=== PATIENT | female | born 1965 | race Asian ===

== ENCOUNTER 2024-10-19 16:47 | Emergency (ER) | payer OTHER, SELFPAY ==
[2024-10-19 16:55] VITALS: BP 140/71; PULSE 73; RESP 18; TEMP 36.4; O2SAT 100; BMI 19.5
--- NOTE | 2024-10-19 17:48 | ED_ITS ---
HPI - Back Pain/Injury <Brittnee Rosales PA-C - Last Filed: 10/19/24 18:50> General Chief Complaint: Back Pain/Injury Stated Complaint: lower abd and back px Time Seen by Provider: 10/19/24 17:22 History of Present Illness HPI Narrative: 59-year-old female presents [facility] with her for 2 separate complaints the 1st being low back pain radiating to her right buttock and hip that has been ongoing for the last 6 months or so, she reports no known injury. 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 She reports no numbness or tingling or weakness of her lower extremities, she reports no history of any kidney stones. Her 2nd complaint which really is the 1 that brought her in [facility] was some right-sided lower abdominal pain. Initially at triage they thought it was inguinal but she is pointing to her abdomen. She reports it came on suddenly while she was sitting at work at her desk. She describes it as achy and sometimes itching. She reports no radiation through to the back, no nausea, vomiting, fever, chills, flank pain, body aches, recent illness. She reports it does improve when she passes gas, she reports normal bowel movements though occasionally constipated but otherwise regular. Her last bowel movement was this morning which she described as dry and hard at 1st but then soft following she also described it as somewhat copious. She had no pain during defecation. She reports urination is normal. She has had no disruption during sleep. She has tried no treatment such as any medication, ice, heat, she is eating normally. Her only surgical history is hysterectomy. She resides in [place] and had her last physical 1 year ago. She denies any other medical issues. All other systems are reviewed and are negative. Related Data Allergies Allergy/AdvReac Type Severity Reaction Status Date / Time No Known Drug Allergies Allergy Verified 10/19/24 16:55 Review of Systems <Brittnee Rosales PA-C - Last Filed: 10/19/24 18:50> Review of Systems Narrative: All other systems reviewed and are negative. Patient History <Brittnee Rosales PA-C - Last Filed: 10/19/24 18:50> Social History Smoking Status: Unknown if ever smoked Smoking Status: Unknown if ever smoked Exam <Brittnee Rosales PA-C - Last Filed: 10/19/24 18:50> Initial Vital Signs Initial Vital Signs: Vital Signs Temperature 97.6 F 10/19/24 16:55 Pulse Rate 73 10/19/24 16:55 Respiratory Rate 18 10/19/24 16:55 Blood Pressure 140/71 10/19/24 16:55 Pulse Oximetry 100 10/19/24 16:55 Oxygen Delivery Method Room Air 10/19/24 16:55 Vital signs reviewed and are normal. Const Other: Smiling, seated, no distress. Alert and oriented x4. Irritable appearing. Able to rise from a seated position to standing without pain or difficulty. [facility] Head: normal to inspection, normocephalic and atraumatic Nose: external nose normal Mouth: oral mucosae normal, lip normal, tongue normal and oropharynx normal Neck Lymphatic: No lymphadenopathy Other: Full active range of motion to the neck. No pain elicited. Chest Chest: normal inspection of the chest Resp Effort & Inspection: normal respiratory effort and able to speak in complete sentences Auscultation: clear to auscultation bilaterally, no rales, no rhonchi and no wheezes Cardio Rate: regular rate Rhythm: regular rhythm GI Inspection: normal to inspection, no abdominal wall ecchymosis, non-distended, no incisions, no obesity, no scars, no striae and no visible herniation Palpation: soft, no hepatosplenomegaly and No guarding Percussion: normal to percussion Auscultation: normal bowel sounds Other: No CVA tenderness. No inguinal swelling or tenderness. No inguinal lymph nodes. Back/Spine/Pelvis Back: normal to inspection, No back tenderness, No CVA tenderness, No ecchymosis and No erythema Cervical Spine: normal cervical lordosis and cervical ROM normal Thoracic/Lumbar Spine: thoracic and lumbar spine normal to inspection Sacroiliac Joints: nontender Sacrum: no tenderness Coccyx: no tenderness Skin General: no rashes or lesions noted Neuro DTR's: Rt Patellar: 2+, Lt Patellar: 2+, Rt Ankle: 1+ and Lt Ankle: 1+ Extrem Other: Normal gait, full hip ROM, no pain elicited with internal or external rotation on the right hip, full extension and flexion, abduction and adduction do not cause pain. ITB band are nontender. No issues identified with the gluteus, piriformis is nontender, sciatic notch is nontender. No focal neurologic deficits. <DO Sandra Enciso Last Filed: 10/20/24 02:59> Initial Vital Signs Initial Vital Signs: Vital Signs Temperature 97.6 F 10/19/24 16:55 Pulse Rate 73 10/19/24 16:55 Respiratory Rate 18 10/19/24 16:55 Blood Pressure 140/71 10/19/24 16:55 Pulse Oximetry 100 10/19/24 16:55 Oxygen Delivery Method Room Air 10/19/24 16:55 Course <Brittnee Rosales PA-C - Last Filed: 10/19/24 18:50> Course Course Narrative: Her CT scan was unremarkable for any acute abdominal process, there was some fecal material in the small bowel suggesting slower transit perhaps or bacterial overgrowth, she is afebrile with no nausea or vomiting and no changes in her bowel pattern or stool. We discussed a trial of Toradol intravenous as she has a saline lock but she declined, she declined any oral medication such as acetaminophen or an oral NSAID. We discussed treatment options at length and of course red flag warning signs in detail. Orders Ordered: ED Orders 10/19/24 18:00 CBC Auto Diff [Complete Blood Count AUTO DIFF] Stat CMP [Comprehensive Metabolic Panel] Stat Vital Signs Vital signs: Vital Signs - 8 hr 10/19/24 16:55 Temperature 97.6 F Pulse Rate 73 Respiratory Rate 18 Blood Pressure 140/71 Pulse Oximetry 100 Oxygen Delivery Method Room Air <Stephanie Almaguer DO - Last Filed: 10/20/24 02:59> Orders Ordered: ED Orders 10/19/24 18:00 CBC Auto Diff [Complete Blood Count AUTO DIFF] Stat CMP [Comprehensive Metabolic Panel] Stat Vital Signs Vital signs: Vital Signs - 8 hr 10/19/24 16:55 Temperature 97.6 F Pulse Rate 73 Respiratory Rate 18 Blood Pressure 140/71 Pulse Oximetry 100 Oxygen Delivery Method Room Air MDM - Back Pain/Injury <LAURENT Ferrell Last Filed: 10/19/24 18:50> Lab Data Lab results narrative: Urinalysis is normal. CBC, CMP 10/19/24 18:00 10/19/24 18:00 Labs: Lab Results 10/19/24 Range/Units 18:00 WBC 5.5 (4.5-11.0) X10^3/uL RBC 4.10 (4.0-5.2) X10^6/uL Hgb 12.2 (12.0-16.0) g/dL Hct 37.5 (36-46) % MCV 91.5 (80-100) fL MCH 29.7 (26-34) PG MCHC 32.4 (30-36) % RDW 13.6 (11.6-14.8) % Plt Count 187 (150-400) X10^3/uL Neut % (Auto) 47.7 L (50-75) % Lymph % (Auto) 40.0 (25-40) % [place] % (Auto) 8.1 (3-14) % Eos % (Auto) 3.1 (2-4) % Baso % (Auto) 1.1 (0-2) % Neut # (Auto) 2600 (7665-8005) /uL Lymph # (Auto) 2200 (4964-7645) /uL [place] # (Auto) 400 (0-900) /uL Eos # (Auto) 200 (0-450) /uL Baso # (Auto) 100 (0-100) /uL Sodium 138 (137-145) mmol/L Potassium 4.1 (3.4-5.1) mmol/L Chloride 105 (98-107) mmol/L Carbon Dioxide 23 (22-32) mmol/L BUN 14 (7-17) mg/dL Creatinine 0.59 (0.52-1.04) mg/dL Estimated GFR > 60 (>60) mL/min BUN/Creatinine Ratio 23.7 H (6-22) Glucose 93 (70-100) mg/dL Calcium 9.1 (8.4-10.2) mg/dL Total Bilirubin 0.5 (0.2-1.3) mg/dL AST 40 H (14-36) IU/L ALT 24 (<35) IU/L Alkaline Phosphatase 65 (38-126) U/L Total Protein 8.0 (6.3-8.2) g/dL Albumin 4.8 (3.5-5.0) g/dL Globulin 3.2 (1.7-4.1) g/dL Albumin/Globulin Ratio 1.5 (1.0-2.8) Urine Dip Bedside Urine Glucose Negative Bedside Urine Bilirubin - Negative Bedside Urine Ketone - Negative Urine Specific [place] 1.005 Bedside Urine Occult Blood - Negative Bedside Urine pH 5.5 Bedside Urine Protein - Negative Bedside Urine Urobilinogen - Negative Bedside Urine Nitrite - Negative Bedside Urine Leukocytes - Negative Esterase Imaging Data CT scan - abdomen/pelvis: My Impression: Deferred to radiologist's interpretation below. Radiologist's Impression: PROCEDURE: CT ABDOMEN PELVIS WO CON INDICATIONS: RLQ abd pain since this a.m. No trauma, fever. TECHNIQUE: Axial sections were acquired from the lung bases to the pubic symphysis. Coronal and sagittal reformats were performed. For radiation dose reduction, the following was used: automated exposure control, adjustment of mA and/or kV according to patient size. COMPARISON: None. FINDINGS: Image quality: Diagnostic. Lower Chest: No significant findings. URINARY: Right Kidney: No stones or hydronephrosis. Right Ureter: No hydroureter. Left Kidney: No stones or hydronephrosis. Left Ureter: No hydroureter. Bladder: Normal wall thickness. No stones. ABDOMEN: Liver: No contour-deforming solid mass. Gallbladder: No radiopaque gallstones or wall thickening. Biliary ducts: No biliary dilation. Pancreas: No ductal dilation. Spleen: Size is within normal limits. Adrenal Glands: No adrenal nodules. Stomach and Bowel: Normal colonic caliber, without significant wall thickening. Normal appendix. Fecal debris within the small bowel. Peritoneum: No abnormal intraperitoneal fluid. No free air. Ventral Wall: Small umbilical hernia containing fat. Abdominal Nodes: No enlarged retroperitoneal or mesenteric lymph nodes. Vessels: Aorta and inferior vena cava are normal in size. PELVIS: Pelvic Organs: Hysterectomy. Pelvic Nodes: Unremarkable. Miscellaneous: No inguinal hernias are seen. Bones: Unremarkable. IMPRESSION: No obstructing stones or hydronephrosis. Normal appendix, normal gallbladder. Fecal debris within the small-bowel, usually indicating small intestinal bacterial overgrowth versus slow transit. Dictated by: Byron Rizo M.D. on 10/19/2024 at 18:23 Approved by: Byron Rizo M.D. on 10/19/2024 at 18:25 MDM Narrative Medical decision making narrative: CT scan is unremarkable except for some retained fecal material in the small bowel which can indicate slower transit versus bacterial overgrowth. She has a normal CBC and chemistry. We discussed pain management with a trial of Toradol intravenously as she has a saline lock but she declined. She has done no treatment whatsoever at home so at this point I am not sure what will help her but I encouraged her to do a trial of either acetaminophen or nonsteroidal anti- inflammatory. She also might try an ice pack or heating pad for her low back buttock discomfort which by the way was not reproducible on exam, she had no physical deficits, repeat exam was performed and again no sciatica or radiculopathy, her SI joint exam also was normal. Full hip range without any any quality compared to the contralateral side. Regarding her right lower abdominal pain again there was no signs of any hernia or appendicitis, I have encouraged her to follow up with her PCP which she currently does not have as her doctor retired so she is encouraged to reestablish care for follow up and updating of her healthcare maintenance as her last physical was 1 year ago. I did advise that even though her scan was normal today she could develop worsening pain in the next couple of days and if so to please return here without hesitation. If she develops any new worrisome symptoms to please again return. Red flag warning signs reviewed in great detail. Differential diagnosis includes gas pain, other intestinal or colon etiology. She is highly encouraged to F/U with her new PCP. <Stephanie Almaguer, - Last Filed: 10/20/24 02:59> Lab Data Labs: Lab Results 10/19/24 Range/Units 18:00 WBC 5.5 (4.5-11.0) X10^3/uL RBC 4.10 (4.0-5.2) X10^6/uL Hgb 12.2 (12.0-16.0) g/dL Hct 37.5 (36-46) % MCV 91.5 (80-100) fL MCH 29.7 (26-34) PG MCHC 32.4 (30-36) % RDW 13.6 (11.6-14.8) % Plt Count 187 (150-400) X10^3/uL Neut % (Auto) 47.7 L (50-75) % Lymph % (Auto) 40.0 (25-40) % [place] % (Auto) 8.1 (3-14) % Eos % (Auto) 3.1 (2-4) % Baso % (Auto) 1.1 (0-2) % Neut # (Auto) 2600 (8507-7964) /uL Lymph # (Auto) 2200 (3838-9137) /uL [place] # (Auto) 400 (0-900) /uL Eos # (Auto) 200 (0-450) /uL Baso # (Auto) 100 (0-100) /uL Sodium 138 (137-145) mmol/L Potassium 4.1 (3.4-5.1) mmol/L Chloride 105 (98-107) mmol/L Carbon Dioxide 23 (22-32) mmol/L BUN 14 (7-17) mg/dL Creatinine 0.59 (0.52-1.04) mg/dL Estimated GFR > 60 (>60) mL/min BUN/Creatinine Ratio 23.7 H (6-22) Glucose 93 (70-100) mg/dL Calcium 9.1 (8.4-10.2) mg/dL Total Bilirubin 0.5 (0.2-1.3) mg/dL AST 40 H (14-36) IU/L ALT 24 (<35) IU/L Alkaline Phosphatase 65 (38-126) U/L Total Protein 8.0 (6.3-8.2) g/dL Albumin 4.8 (3.5-5.0) g/dL Globulin 3.2 (1.7-4.1) g/dL Albumin/Globulin Ratio 1.5 (1.0-2.8) Urine Dip Bedside Urine Glucose Negative Bedside Urine Bilirubin - Negative Bedside Urine Ketone - Negative Urine Specific [place] 1.005 Bedside Urine Occult Blood - Negative Bedside Urine pH 5.5 Bedside Urine Protein - Negative Bedside Urine Urobilinogen - Negative Bedside Urine Nitrite - Negative Bedside Urine Leukocytes - Negative Esterase Discharge Plan Departure Patient Disposition: Home Clinical Impression: Abdominal pain, RLQ Low back pain Qualifiers: Chronicity: unspecified Back pain laterality: right Sciatica presence: u nspecified whether sciatica present Qualified Code(s): M54.50 - Low back pain, unspecified Instructions: DI for Abdominal Pain-Adult, DI for Back Pain With Sciatica Activity Restrictions/Additional Instructions: Please consider a trial of a pain relievers such as acetaminophen also known as Tylenol or ibuprofen which is a nonsteroidal anti-inflammatory that must be taken with food. Also please consider using a heating pad or an ice pack for your back and buttock. Regarding her abdominal pain it seems to improve with passing of gas, I would make sure to stay hydrated, keep a journal and see if there is any changes when you have certain foods, I would avoid prolonged sitting and tried to take many work breaks at work as prolonged sitting can certainly cause pain to your low back and buttock and put pressure on the nerves especially the sciatic nerve. If you have any worsening symptoms or persistent pain or any new worrisome symptoms please do not hesitate to return to the emergency department. You were highly encouraged to find a new primary care provider and establish care. I hope you have a good holiday. Referrals: Miscellaneous,Doctor, [Primary Care Provider] - Stand Alone Forms: Patient Portal/API/Survey ED Sign-out <Stephanie Almaguer DO - Last Filed: 10/20/24 02:59> Cosign ED Attending Richa Attestation: I was available for consultation.
[2024-10-19 18:13] LABS: Add Manual Diff / Slide Review NO; Basophils Absolute Auto 100 /uL (0-100); Basophils Percent Auto 1.1 % (0-2); Eosinophils Absolute Auto 200 /uL (0-450); Eosinophils Percent Auto 3.1 % (2-4); Hematocrit 37.5 % (36-46); Hemoglobin 12.2 g/dL (12.0-16.0); Lymphocytes Absolute Auto 2200 /uL (1100-4500); Mean Corpuscular HGB Conc 32.4 % (30-36); Mean Corpuscular Hemoglobin 29.7 PG (26-34); Mean Corpuscular Volume 91.5 fL (80-100); Monocytes Absolute Auto 400 /uL (0-900); Monocytes Percent Auto 8.1 % (3-14); Neutrophils Absolute Auto 2600 /uL (1500-7000); Neutrophils Percent Auto 47.7 % (50-75); Platelet Count 187 X10^3/uL (150-400); Red Cell Distribution Width 13.6 % (11.6-14.8); White Blood Cell Count 5.5 X10^3/uL (4.5-11.0)
[2024-10-19 18:24] VITALS: BP 126/60; PULSE 62; RESP 16; TEMP 36.8; O2SAT 100
[2024-10-19 18:30] LABS: Alanine Aminotransferase 24 IU/L (<35); Albumin 4.8 g/dL (3.5-5.0); Albumin Globulin Ratio 1.5 (1.0-2.8); Alkaline Phosphatase 65 U/L (38-126); Aspartate Aminotransferase 40 IU/L (14-36); BUN Creatinine Ratio 23.7 (6-22); Bilirubin Total 0.5 mg/dL (0.2-1.3); Blood Urea Nitrogen 14 mg/dL (7-17); Calcium 9.1 mg/dL (8.4-10.2); Carbon Dioxide 23 mmol/L (22-32); Chloride 105 mmol/L (98-107); Estimated Glomerular Filt Rate > 60 mL/min (>60); Globulin 3.2 g/dL (1.7-4.1); Glucose 93 mg/dL (70-100); HEMOLYSIS 20 (0-50); Potassium 4.1 mmol/L (3.4-5.1); Sodium 138 mmol/L (137-145)
== END 2024-10-19 19:05 | disposition home or self-care (01) ==
PROVIDERS: Emergency Provider Physician Assistant Medical
DX: R10.31 Right lower quadrant pain (principal); M54.50 Low back pain, unspecified
CPT/HCPCS: 36415; 74176; 80053; 81003; 85025; 99283; 99284